=== PATIENT | female | born 1945 | race Caucasian/White ===

== ENCOUNTER 2016-11-25 13:07 | Day surgery (SDC) | payer MEDICARE, OTHER ==
--- NOTE | 2016-11-25 08:30 | HP ---
PROCEDURE DATE: 11/25/16 HISTORY OF PRESENT ILLNESS: Patient is a 70 y/o with history of ovarian cancer, metastatic cancer to the liver and lung in need of Port-a-Cath placement at this time. Had port removed a few years ago, but now is in need of another. PAST MEDICAL HISTORY: Ovarian cancer, arthritis. CURRENT MEDICATIONS: Plaquenil, aspirin, and prednisone. ALLERGIES: LEVAQUIN. PAST SURGICAL HISTORY: Had port placement and port removal in the past. She had a hysterectomy and oophorectomy in the past. FAMILY HISTORY: Heart disease, cancer, aneurysm in the family. SOCIAL HISTORY: 1/2 pack per day smoker. Denies alcohol abuse. REVIEW OF SYSTEMS: 10 systems reviewed. No chest pains or palpitations. Other systems negative or noncontributory other than above and per preadmission questionnaire. PHYSICAL EXAMINATION: GENERAL: No acute distress. HEENT: Sclerae nonicteric. NECK: No JVD. CHEST: Equal excursion. Nonlabored breathing. CVS: Regular rate and rhythm. EXTREMITIES: No significant edema. NEURO: Alert, moving extremities symmetrically. IMPRESSION: 1. HISTORY OF METASTATIC OVARIAN CANCER IN NEED OF PORT-A-CATH PLACEMENT FOR IV TREATMENT. FEEL SHE IS A CANDIDATE. Risks and benefits explained in detail, but not limited to, bleeding; infection; risk of thrombosis or pneumothorax; small risk of arterial or other major venous issues or injury, but not limited to; risk of port or catheter fracture or failure possibly requiring removal or replacement; general risks of anesthesia, deep vein thrombosis, pulmonary embolism, or pneumonia, but not limited to. She understands and agrees to the planned procedure. Will proceed with outpatient Port-a-Cath placement.
[~2016-11-25 13:07] MED LIST: CEFAZOLIN 2 GM-D5W BAG** 50 ML IV ONE; DIPRIVAN 200 MG/20 ML IV ONE; Ketamine HCl 50 MG/ML IV ONE; Lactated Ringers 1,000 ML IV ONE; Lactated Ringers 1,000 ML IV SCH; XYLOCAINE 1% HCL 20 ML MDV ONE
[2016-11-25] MEDS ORDERED: Lactated Ringers 1,000 ML IV ONE (13:28)
[2016-11-25] MEDS ORDERED: CEFAZOLIN 2 GM-D5W BAG** 50 ML IV ONE (13:28)
[2016-11-25 18:30] VITALS: BP 138/88; PULSE 91; O2SAT 98
--- NOTE | 2016-11-26 07:52 | OP ---
SURGERY DATE/TIME: 11/25/2016 1647 PREOPERATIVE DIAGNOSIS: History of ovarian cancer with metastatic carcinoma now. POSTOPERATIVE DIAGNOSIS: History of ovarian cancer with metastatic carcinoma now. Preoperative and postoperative need for medical terminologist IV access for IV treatment. PROCEDURE: Tunnel Port-A-Cath placement with C-arm fluoroscopy. SURGEON: Dr. Shakeel Infante. ANESTHESIA: MAC. 1% lidocaine local. ESTIMATED BLOOD LOSS: Minimal. INDICATIONS: As noted above. Risks and benefits explained in detail and not limited to and consent obtained. DESCRIPTION OF PROCEDURE AND FINDINGS: The patient is taken to the operating room. MAC anesthesia induced. After official time out and no disagreement of planned procedure, in Trendelenburg position 1% lidocaine local was infiltrated right subclavicular position. On second pass good dark nonpulsatile venous return. Guidewire passed without difficulty and up the internal jugular. It was pulled back and repositioned. This time went down the superior vena cava without difficulty and confirmed on C-arm fluoroscopy. It was followed by mid-size tunnel track and port pocket. A transverse incision made inferior subcu. Port pocket created with aide of the cautery. Port secured to the chest wall with Prolene suture x2. Catheter tunneled down from cannulation stab wound down port pocket area. The dilator break away sheath easily fed over the guide wire. The catheter is fed down the breakaway sheath. The tip was pulled back in distal superior vena cava. On C-arm fluoroscopy the catheter is cut to appropriate length, snapped on the port with the hub. The port aspirated dark nonpulsatile venous return with ease and flushed with heparinized saline with ease. Good hemostasis noted. Subcu closed with 3-0 Vicryl. Skin closed with 4-0 Vicryl. Cannulation stab wound closed with 4-0 Vicryl. Steri-Strips and sterile dressing applied. The tip was in good location in distal superior vena cava on C-arm fluoroscopy. The lung avalos appeared to be up bilaterally. The patient tolerated the procedure well and it was felt no further x-rays were necessary at this point. The patient tolerated the procedure well. There were no immediate complications. She was transferred to the recovery room in stable condition.
--- NOTE | 2016-11-26 09:07 | XRAY ---
Indication: Venous access for Port-A-Cath. Intraoperative fluoroscopy was provided for 4 seconds. A single digital spot image demonstrates right Port-A-Cath with the tip in the SVC. Incidental chunky calcified mediastinal nodes. Correlate with intraoperative findings/report.
== END 2016-11-25 18:20 | disposition home or self-care (01) ==
LOC: SDC 13:07
PROVIDERS: ATTEND Surgery
PROC: 02HV33Z Insertion of Infusion Device into Superior Vena Cava, Percutaneous Approach (ICD-10-PCS; principal; 2016-11-25)
DX: Z85.43 Personal history of malignant neoplasm of ovary (principal); C78.7 Secondary malignant neoplasm of liver and intrahepatic bile duct; C78.00 Secondary malignant neoplasm of unspecified lung; M19.90 Unspecified osteoarthritis, unspecified site; Z79.899 Other long term (current) drug therapy; Z72.0 Tobacco use
CPT/HCPCS: 00532; 77001; 99100; C1788; J0690; J1642